=== PATIENT | male | born 1960 | race Caucasian/White ===

== ENCOUNTER → 2016-11-21 | Outpatient (CLI) | payer OTHER ==
[~2016-11-21] MED LIST: ALLO300T2 PO; ATOR10TA88 PO; INSU1.2I SC; LISI-725 PO; METF-384 PO; TRAM-10 PO; [UNRECOGNIZED DRUG - CODE] PO
[2016-11-21 16:59] LABS: URINE APPEARANCE CLEAR (CLEAR); URINE BILIRUBIN NEG (NEG); URINE COLOR YELLOW; URINE NITRITE NEG (NEG); URINE SPECIFIC GRAVITY 1.033 (1.000-1.030); UROBILINOGEN NEG (NEG)
[2016-11-21 17:01] LABS: MANUAL MICROSCOPIC REQUIRED? NO; REVIEW REQ? NO
[2016-11-21 17:04] LABS: BASO % 0.6 %; BASO ABS # 0.05 K/uL (0-0.2); COMPLETE YES; EOS % 4.2 %; HEMATOCRIT 45.2 % (42-52); IG% 0.2 %; LYMPH % 33.1 %; LYMPH ABS # 2.66 K/uL (1.2-3.4); MEAN CORPUSCULAR HEMOGLOBIN 29.5 pg (25-34); MEAN CORPUSCULAR HGB CONC 34.7 g/dl (32-36); MEAN PLATELET VOLUME 11.8 fL (7.4-10.4); MONO % 8.7 %; NEUT % 53.2 %; PLATELET COUNT 180 K/uL (130-400); RED BLOOD COUNT 5.32 M/uL (4.7-6.1); WHITE BLOOD COUNT 8.03 K/uL (4.8-10.8)
[2016-11-21 17:20] LABS: ALB/GLOB RATIO 1.4 (0.9-2); ALKALINE PHOSPHATASE 56 U/L (45-117); ALT/SGPT 35 U/L (12-78); AST/SGOT 15 U/L (15-37); BLOOD UREA NITROGEN 16 mg/dl (7-18); BUN/CREATININE RATIO 14.2 (10-20); CALCIUM 9.4 mg/dl (8.5-10.1); CARBON DIOXIDE 31 mmol/L (21-32); CHLORIDE 98 mmol/L (98-107); POTASSIUM 4.6 mmol/L (3.5-5.1); SODIUM 134 mmol/L (136-145)
[2016-11-21 17:21] LABS: GLUCOSE 356 mg/dl (70-99)
[2016-11-21 17:37] LABS: BETA-HYDROXYBUTYRATE 0.83 mg/dL (0.2-2.81)
== END | disposition home or self-care (01) ==
LOC: C.LABPBG 15:30
PROVIDERS: ATTEND Family Medicine
DX: N40.0 Benign prostatic hyperplasia without lower urinary tract symptoms (principal); R19.00 Intra-abdominal and pelvic swelling, mass and lump, unspecified site

== ENCOUNTER 2016-11-24 12:51 | Emergency (ER) | payer OTHER ==
[~2016-11-24] VITALS: Ht 182.9 cm; Wt 115.9 kg
[2016-11-24 13:06] VITALS: Ht 182.9 cm; Wt 115.9 kg
[2016-11-24] MEDS ORDERED: MoRPHine SULFATE 4 MG/ML 1 ML CARP\\VIAL IV STA (13:50)
[2016-11-24] MEDS ORDERED: INSU1.2I SC (13:54)
[2016-11-24] MEDS ORDERED: ALLO300T2 PO (13:54)
[2016-11-24] MEDS ORDERED: LISI-725 PO (13:54)
[2016-11-24] MEDS ORDERED: [UNRECOGNIZED DRUG - CODE] PO (13:54)
[2016-11-24] MEDS ORDERED: METF-384 PO (13:54)
[2016-11-24] MEDS ORDERED: TRAM-10 PO ×2 (13:54→15:37)
[2016-11-24] MEDS ORDERED: ATOR10TA88 PO (13:54)
[2016-11-24] MEDS ORDERED: SODIUM CHLORIDE 0.9% 1000ML 1,000 ML IV SCH (14:00)
--- NOTE | 2016-11-24 14:02 | EMERGENCY ROOM VISIT NOTE ---
History First contact with patient: 13:27 Chief Complaint: ABDOMINAL PAIN Stated Complaint: ABD PAIN, BACK PAIN, KIDNEY PAIN Nursing Triage Summary: pt reports pain by kidneys test showed he has kidney stone and enlarged prostate. done in [place] History of Present Illness The patient is a 56 year old male who presents to the Emergency Room with complaints of bilateral flank pain. The patient describes bilateral aching flank pain, R > L. The pain is not associated with urination. The pain does not radiate anywhere. There is no dysuria. The patient denies urinary frequency. The patient is able to void without difficulty. The patient denies hematuria or foul smelling urine. note the patient does a lot of heavy lifting around the house and at work. The patient is unsure if he strained anything with work. The patient denies nausea, vomiting, diarrhea or constipation. The patient has had a normal appetite. He has felt feverish but has not had fevers, chills or sweats. The patient denies saddle anesthesia, lower extremity weakness, or incontinence. The patient has now had pain for 1 week. He presented to his PCP for an establish visit on November 18. According to PCP note, there was mass palpated and a follow-up CT scan was ordered and done on Nov 19, 2016, which noted fatty liver, enlarged bladder and L5 spondylolysis. There was no evidence of renal tract stones. Review of Systems as below Eyes: No worsening of vision, No eye pain, No redness ENT: No nasal symptoms, No sore throat, No tinnitus Respiratory: No cough, No sputum, No wheezing Cardiovascular: No chest pain, No claudication, No palpitations Abdomen: No pain, No nausea, No vomiting, No diarrhea, No constipation Musculoskeletal: No joint pain, No muscle pain, No swelling Genitourinary - Male: No dysuria, No urinary hesitancy, No urinary retention , No urinary incontinence Neurologic: No weakness, No numbness/tingling, No vertigo Hematologic / Lymphatic: No clotting problems, No swollen lymph nodes, No night sweats Integumentary: No rash, No itch, No new/changing skin lesions Past Medical/Surgical History Hypertension Hyperlipidemia Gout Type 2 Diabetes, on Insulin Family History No known family history Social History Smoking Status: Never Smoker Smokeless Tobacco Use: No Alcohol Use: none Drug Use: none Marital Status: Housing Status: lives with significant other Occupation Status: employed (does lots of heavy lifting) Current/Historical Medications Scheduled Allopurinol (Zyloprim), 300 MG PO DAILY Atorvastatin (Lipitor), 10 MG PO DAILY Insulin Glargine (Toujeo Solostar), 17 UNITS SC DAILY Lisinopril (Zestril), 20 MG PO DAILY Metformin Hcl (Glucophage), 1,000 MG PO BID Tramadol (Ultram), 50 MG PO QID Scheduled PRN Indomethacin (Indomethacin ER), 75 MG PO DAILY PRN for Pain Tramadol (Ultram), 50 MG PO Q6H PRN for Pain Physical Exam Vital Signs Date Time Temp Pulse Resp B/P (MAP) Pulse Ox O2 Delivery O2 Flow Rate FiO2 11/24/16 16:24 36.8 73 16 136/87 98 11/24/16 14:25 68 20 156/88 97 11/24/16 13:06 36.8 81 18 185/85 97 Room Air Pain Rating (0-10): 5 Physical Exam Constitutional: Vital signs as above were reviewed. Eyes: Pupils equal, round, and reactive to light. Extraocular muscles are intact. No proptosis. No photophobia. ENT: Mucous membranes are moist. Oropharynx is clear. No sinus tenderness. TMs are clear bilaterally. Cardiovascular: Heart with a regular rate and rhythm. Pulses are palpable and symmetric in all 4 extremities. No pedal edema appreciated. Respiratory: Lungs clear to auscultation bilaterally. No wheezes, rales, or rhonchi appreciated. No accessory muscle use. No retractions. No increased work of breathing. GI: Abdomen soft, nontender, nondistended. Normal active bowel sounds. No abdominal hernias appreciated. No rebound. No guarding. Mild bilateral flank tenderness bilaterally : No CVA tenderness appreciated. Musculoskeletal: No midline cervical or vertebral tenderness. No gross deformities. No bony tenderness. No calf swelling or tenderness. Integumentary: Warm, dry, no rashes appreciated. Neurological: Patient awake, alert, and oriented x 3. Cranial nerves two through 12 grossly intact. Motor 5 out of 5 strength bilateral upper and lower extremities. Lymph: No cervical lymphadenopathy appreciated. Medical Decision & Procedures Laboratory Results 11/24/16 13:25 Red Blood Count 5.63, Mean Corpuscular Volume 85.3, Mean Corpuscular Hemoglobin 29.7, Mean Corpuscular Hemoglobin Concent 34.8, Mean Platelet Volume 11.8, Neutrophils (%) (Auto) 60.1, Lymphocytes (%) (Auto) 26.8, Monocytes (%) (Auto) 8.0, Eosinophils (%) (Auto) 4.3, Basophils (%) (Auto) 0.5, Neutrophils # (Auto) 5.26, Lymphocytes # (Auto) 2.35, Monocytes # (Auto) 0.70, Eosinophils # (Auto) 0.38, Basophils # (Auto) 0.04 11/24/16 13:25 Test 11/24/16 13:25 11/24/16 13:52 White Blood Count 8.76 K/uL (4.8-10.8) Red Blood Count 5.63 M/uL (4.7-6.1) Hemoglobin 16.7 g/dL (14.0-18.0) Hematocrit 48.0 % (42-52) Mean Corpuscular Volume 85.3 fL (80-100) Mean Corpuscular Hemoglobin 29.7 pg (25-34) Mean Corpuscular Hemoglobin Concent 34.8 g/dl (32-36) Platelet Count 190 K/uL (130-400) Mean Platelet Volume 11.8 fL (7.4-10.4) Neutrophils (%) (Auto) 60.1 % Lymphocytes (%) (Auto) 26.8 % Monocytes (%) (Auto) 8.0 % Eosinophils (%) (Auto) 4.3 % Basophils (%) (Auto) 0.5 % Neutrophils # (Auto) 5.26 K/uL (1.4-6.5) Lymphocytes # (Auto) 2.35 K/uL (1.2-3.4) Monocytes # (Auto) 0.70 K/uL (0.11-0.59) Eosinophils # (Auto) 0.38 K/uL (0-0.5) Basophils # (Auto) 0.04 K/uL (0-0.2) RDW Standard Deviation 40.4 fL (36.4-46.3) RDW Coefficient of Variation 13.0 % (11.5-14.5) Immature Granulocyte % (Auto) 0.3 % Immature Granulocyte # (Auto) 0.03 K/uL (0.00-0.02) Anion Gap 6.0 mmol/L (3-11) Est Creatinine Clear Calc Drug Dose 119.0 ml/min Estimated GFR () 109.5 Estimated GFR (Non- 94.5 BUN/Creatinine Ratio 12.9 (10-20) Calcium Level 9.4 mg/dl (8.5-10.1) Total Bilirubin 0.6 mg/dl (0.2-1) Aspartate Amino Transf (AST/SGOT) 15 U/L (15-37) Alanine Aminotransferase (ALT/SGPT) 33 U/L (12-78) Alkaline Phosphatase 60 U/L (45-117) Total Protein 7.4 gm/dl (6.4-8.2) Albumin 3.9 gm/dl (3.4-5.0) Globulin 3.5 gm/dl (2.5-4.0) Albumin/Globulin Ratio 1.1 (0.9-2) Urine Color YELLOW Urine Appearance CLEAR (CLEAR) Urine pH 6.0 (4.5-7.5) Urine Specific [place] 1.023 (1.000-1.030) Urine Protein NEG (NEG) Urine Glucose (UA) 3+ (NEG) Urine Ketones NEG (NEG) Urine Occult Blood NEG (NEG) Urine Nitrite NEG (NEG) Urine Bilirubin NEG (NEG) Urine Urobilinogen NEG (NEG) Urine Leukocyte Esterase NEG (NEG) Medications Administered Medications (Trade) Dose Ordered Sig/Randall Route Start Time Stop Time Status Last Admin Dose Admin Sodium Chloride 1,000 ml @ 999 mls/hr Q1H1M IV 11/24/16 14:00 11/24/16 17:24 DC 11/24/16 14:00 999 MLS/HR Morphine Sulfate (MoRPHine SULFATE INJ) 4 mg NOW STAT IV 11/24/16 13:50 11/24/16 13:52 DC 11/24/16 14:27 4 MG ED Course 13:20 - Evaluated by Dr. Cruz, R3 13:40 - Labs ordered 13:50 - Staffed case with Dr. Khari Waldron, ER attending physician Morphine 4 mg IV one dose 13:55 - Reviewed CT scan ordered by Dr. Enriquez Nov 19, 2016 Report states mild hepatic steatosis, cholelithiasis, minimal diverticulosis , enlarged prostate indenting the bladder, L5 spondylolysis bilaterally. 14:20 - Labs reviewed; WNL Hyperglycemia noted 16:00 - 1 L NSS complete Patient reports feeling better; agreeable to discharge with PCP follow-up Patient discharged in stable condition Medical Decision 56 year old male with bilateral flank pain. Differential includes: urinary tract stone, pyelonephritis, cholecystitis, choledocholithiasis, musculoskeletal pain. The CT scan from 11/19, ordered by PCP was reviewed and did not show any concerning findings, specifically urinary tract stones. Moreover, despite having choledocholithiasis, the absence of leukocytosis, or elevated transaminases points against an acute. The patient did have palpable muscular pain bilaterally. History does indicate that he does heavy lifting so it is possible, that this is muscular strain which he is to be treated for. Given the absence of concerning findings on history, exam or lab studies, the patient was discharged home in stable condition, with instructions to follow-up with PCP. The patient was discharged home in stable condition. [place] Drug Monitoring Program Search Results: patient reviewed within database, no issues identified Head Trauma GCS Score: 15 Medication Reconcilliation Current Medication List: was personally reviewed by me Blood Pressure Screening Patient's blood pressure: Elevated blood pressure Impression Primary Impression: Pain in abdominal muscle of right flank Additional Impression: Pain in abdominal muscle of left flank Departure Information Dispostion Home / Self-Care Condition GOOD Prescriptions Tramadol (Ultram) 50 Mg Tab 50 MG PO Q6H Y for Pain for 5 Days, #20 TAB Prov: Lyle Cruz MD 11/24/16 Referrals Vanessa Enriquez DO (PCP) Patient Instructions My [facility] Additional Instructions You came to the ED for pain in the back. We checked your labs and they were all normal. Your blood sugar was high but this can be treated at home with your insulin and regular checks. We reviewed your recent CT scan from 11/19, which did not show any evidence of kidney stones. There is no indication based on your labs that you have any infection in your kidneys, urinary tract or bladder. You do have tenderness on both sides under the ribs. We suspect the cause is muscular. Fortunately, you can be treated at home with close follow-up with your family doctor. We will give you a prescription for Tramadol to help. Please use Tylenol and/ or Motrin as needed as well. Ice/Heat pack application can be tried as well if that gives you relief. In addition. If your symptoms fail to improve, acutely worsen, please seek medical attention immediately by either calling your primary care provider or going to your nearest emergency department. Otherwise, please see your primary care provider in 3-5 days to ensure that your symptoms continue to improve. Problem Qualifiers
[2016-11-24 14:07] LABS: BASO % 0.5 %; BASO ABS # 0.04 K/uL (0-0.2); COMPLETE YES; EOS % 4.3 %; IG% 0.3 %; LYMPH % 26.8 %; LYMPH ABS # 2.35 K/uL (1.2-3.4); MEAN CELL VOLUME 85.3 fL (80-100); MEAN CORPUSCULAR HEMOGLOBIN 29.7 pg (25-34); MEAN CORPUSCULAR HGB CONC 34.8 g/dl (32-36); MEAN PLATELET VOLUME 11.8 fL (7.4-10.4); NEUT % 60.1 %; PLATELET COUNT 190 K/uL (130-400); RED BLOOD COUNT 5.63 M/uL (4.7-6.1); WHITE BLOOD COUNT 8.76 K/uL (4.8-10.8)
[2016-11-24 14:09] LABS: BUN/CREATININE RATIO 12.9 (10-20); CALCIUM 9.4 mg/dl (8.5-10.1); CREATININE 0.9 mg/dl (0.60-1.40); POTASSIUM 4.9 mmol/L (3.5-5.1)
[2016-11-24 14:10] LABS: URINE APPEARANCE CLEAR (CLEAR); URINE BILIRUBIN NEG (NEG); URINE COLOR YELLOW; URINE NITRITE NEG (NEG); URINE SPECIFIC GRAVITY 1.023 (1.000-1.030); UROBILINOGEN NEG (NEG); ZZUR CULT IF INDIC CLEAN CATCH NO
[2016-11-24 14:12] LABS: ALB/GLOB RATIO 1.1 (0.9-2)
[2016-11-24 14:14] LABS: MANUAL MICROSCOPIC REQUIRED? NO; REVIEW REQ? NO
[2016-11-24 16:24] VITALS: BP 136/87; PULSE 73; TEMP 36.8; O2SAT 98
--- NOTE | 2016-11-24 16:52 | EMERGENCY ROOM VISIT NOTE ---
ED Visit Note First contact with patient: 13:27 The patient was seen and examined with Lyle Cruz, . I agree with the history, physical and findings. Please see the note for disposition and details.
== END 2016-11-24 16:26 | disposition home or self-care (01) ==
LOC: C.EDB 12:55
DX: R10.9 Unspecified abdominal pain (principal); E11.9 Type 2 diabetes mellitus without complications; Z79.4 Long term (current) use of insulin; I10 Essential (primary) hypertension; E78.5 Hyperlipidemia, unspecified

== ENCOUNTER 2017-01-26 07:01 | Observation (INO) | payer OTHER ==
[2017-01-05 11:05] VITALS: BMI 34.0
[~2017-01-26] VITALS: Ht 182.9 cm; Wt 115.9 kg
[2017-01-26] VITALS (8 sets, daily range): BP systolic 150–180; BP diastolic 81–91; PULSE 74–93; TEMP 36.7–37.2; O2SAT 95–97; BMI 34.0
[~2017-01-26 07:01] MED LIST changes: +ASPI81TA28 PO; +ATOR10TA82 PO; -ATOR10TA88 PO; +CEFUROXIME IV 1,500 MG in DEXTROSE 5% 100ML IV SCH; +IBUP-1050 PO; +LACTATED RINGER'S 1000ML 1,000 ML IV SCH
[2017-01-26] MEDS ORDERED: MIDAZOLAM HCL 1 MG/ML 2ML VIAL ONE (08:53)
[2017-01-26] MEDS ORDERED: FENTANYL CITRATE INJ 50 MCG/1 ML 2 ML VIAL ONE (08:53)
--- NOTE | 2017-01-26 10:07 | History & Physical Bridge Note ---
H&P Re-Evaluation Bridge Note: I have examined the patient, reviewed the History & Physical and in the interval since the performance of the History & Physical I have noted the following changes of clinical significance: No changes noted
[2017-01-26] MEDS ORDERED: CONRAY 60% 50 ML VIAL ONE (10:15)
[2017-01-26] MEDS ORDERED: BUPIVACAINE 0.5 % 5 MG/1 ML MPF 30ML VIAL ONE (10:15)
[2017-01-26] MEDS ORDERED: GLYCOPYRROLATE INJ 0.2 MG/ML VIAL ONE (10:59)
[2017-01-26] MEDS ORDERED: PHENYLEPHRINE 100MCG/ML 5ML SYR ONE (10:59)
[2017-01-26] MEDS ORDERED: EpHEDrine SULFATE 50MG/5ML SYR ONE (10:59)
[2017-01-26] MEDS ORDERED: NEOSTIGMINE METHYLSULFATE 5 MG/5 ML SYR ONE (10:59)
[2017-01-26] MEDS ORDERED: ROCURONIUM BROMIDE 10 MG/ML 5 ML VIAL IV ONE (10:59)
[2017-01-26] MEDS ORDERED: PROPOFOL IV EMULSION 10 MG/ML 20 ML VIAL IV ONE (10:59)
[2017-01-26] MEDS ORDERED: ONDANSETRON INJ 2 MG/ML 2 ML VIAL ONE (10:59)
[2017-01-26] MEDS ORDERED: LIDOCAINE HCL 2% 2 ML VIAL (20MG/ML) ONE (10:59)
[2017-01-26] MEDS ORDERED: LACTATED RINGER'S 1000ML 1,000 ML IV SCH (11:21)
--- NOTE | 2017-01-26 11:25 | [facility] Operative Report ---
Operative Report Operative Date Jan 26, 2017. Pre-Operative Diagnosis Cholelithiasis, Biliary Colic Post-Operative Diagnosis Cholelithiasis, Biliary Colic, chronic cholecystitis Procedure(s) Performed Laparoscopic Cholecystectomy Surgeon Dr. Aguiar Yard Caller Surgeon(s) EMILIANO Corona Estimated Blood Loss 10mL Findings chronic adhesions and stone in neck Specimens A. Gallbladder Anesthesia gen Complication(s) None Disposition Recovery Room / PACU I attest to the content of the Intraoperative Record and any orders documented therein. Any exceptions are noted below.
[2017-01-26] MEDS ORDERED: PROMETHAZINE HCL INJ 25 MG in SODIUM CHLORIDE 0.9% 50ML 50 ML IV PRN (11:30)
[2017-01-26] MEDS ORDERED: ONDANSETRON INJ 2 MG/ML 2 ML VIAL IV PRN ×2 (11:30→11:45)
[2017-01-26] MEDS ORDERED: HYDROCODONE/ACETAMOPHEN 5/325MG TAB PO PRN (11:30)
[2017-01-26] MEDS ORDERED: MoRPHine SULFATE 2 MG/ML CARP IV PRN (11:30)
[2017-01-26] MEDS ORDERED: MoRPHine SULFATE 4 MG/ML 1 ML CARP\\VIAL IV PRN (11:30)
--- NOTE | 2017-01-26 11:44 | OPERATIVE REPORT ---
DATE OF OPERATION: 01/26/2017 NAME OF OPERATION: Laparoscopic cholecystectomy. PREOPERATIVE DIAGNOSIS: Biliary colic. POSTOPERATIVE DIAGNOSIS: Same with chronic cholecystitis and chronic adhesions. STAFF SURGEON: Gavino Aguiar MD. LIGHT BULB TESTER: Rubén Redmond PA-C. ANESTHESIA: General. DESCRIPTION OF PROCEDURE: The patient was brought in the operating room and placed on the operating table in supine position. His abdomen was prepped and draped in usual fashion. Pneumatic stockings and orogastric tube were placed. Then, 0.5% plain Marcaine was used to anesthetize all incisions. Incision was made above the umbilicus, carrying dissection down, retracting the fascia, placing a Veress needle producing pneumoperitoneum. An 11 mm port was placed at this level. Then under visualization, three 5 mm ports were placed, 1 cephalad and 2 laterally. Gallbladder was grasped. There were severe adhesions of the omentum to the gallbladder consistent with chronic inflammation. These were taken down. The bile was aspirated from the gallbladder. There were significant adhesions around the ghazal hepatis with a stone in the neck of the gallbladder, cystic duct and cystic artery identified, clipped and transected, then the gallbladder dissected away from the liver bed in the usual fashion. It was placed in an Endobag. After appropriate hemostasis and irrigation, the Endobag was removed through the umbilical site. All ports were then removed. The umbilical fascia closed using 0 Vicryl suture. Skin was reapproximated using 5-0 Prolene suture. The patient was transferred to recovery room in stable condition. My hospital clinic assistant helped with entering the abdomen, exposing the gallbladder, removing the gallbladder and closing the incision. I attest to the content of the Intraoperative Record and any orders documented therein. Any exception s are noted below.
[2017-01-26] MEDS ORDERED: NALOXONE HCL 0.4 MG/1 ML VIAL/CARP IV PRN (11:45)
[2017-01-26] MEDS ORDERED: EpHEDrine SULFATE INJ 50 MG/ML AMP IV PRN (11:45)
[2017-01-26] MEDS ORDERED: ATROPINE SULFATE 0.1 MG/ML 5ML SYR IV PRN (11:45)
[2017-01-26] MEDS ORDERED: LABETALOL HCL IV 5 MG/ML 20ML IV PRN (11:45)
[2017-01-26] MEDS ORDERED: FENTANYL CITRATE INJ 50 MCG/1 ML 2 ML VIAL IV PRN (11:45)
[2017-01-26] MEDS ORDERED: PROMETHAZINE HCL INJ 12.5 MG in SODIUM CHLORIDE 0.9% 50ML 50 ML IV PRN ×2 (11:45)
[2017-01-26] MEDS ORDERED: FLUMAZENIL 0.1 MG/1 ML 10 ML VIAL IV PRN (11:45)
[2017-01-26] MEDS ORDERED: IV FLUIDS COMPLETED PRN (12:15)
--- NOTE | 2017-01-26 12:22 | Anesthesiology Progress Note ---
Anesthesia Post Op Note Date & Time Jan 26, 2017 at 12:21 Vital Signs Pain Intensity: 0 Vital Signs Past 12 Hours Date Time Temp Pulse Resp B/P (MAP) Pulse Ox O2 Delivery O2 Flow Rate FiO2 01/26/17 11:55 74 16 145/87 100 Oxymask 10 01/26/17 11:45 73 16 143/88 100 Oxymask 10 01/26/17 11:35 37.5 82 16 162/82 99 Oxymask 01/26/17 07:33 36.7 83 20 180/88 (118) 95 Room Air Notes Mental Status: alert / awake / arousable, participated in evaluation Pt Amnestic to Procedure: Yes Nausea / Vomiting: adequately controlled Pain: adequately controlled Airway Patency, RR, SpO2: stable & adequate BP & HR: stable & adequate Hydration State: stable & adequate Anesthetic Complications: no major complications apparent
--- NOTE | 2017-01-26 15:08 | Medical Consult ---
Consultation Date of Consultation: Jan 26, 2017. Attending Physician: Gavino Aguiar M.D. Reason for Consultation: Medical management History of Present Illness 56 yo male here after cholecystectomy by Dr. Aguiar. Per the patient, has been dealing with low back pain for several months, discovered to have the gall stones, hoping that pain was due to the stones. Surgery went well, no complications. Breathing well, no chest pain or pressure, no nausea. Has some mild abdominal pain near the surgical incisions but otherwise doing well. Patient has a history of HTN, diabetes type II, high cholesterol. Recently this year he has had his veins stripped. Past Medical/Surgical History HTN Dyslipidemia DM type II Varicose veins, s/p vein stripping BPH s/p vasectomy s/p carpal tunnel repair Family History DM, HTN Social History Smoking Status: Never Smoker Alcohol Use: socially (on weekends) Drug Use: none Marital Status: Housing Status: lives with significant other Occupation Status: employed Allergies Coded Allergies: No Known Allergies (Unverified , 01/26/17) Home Medications Allopurinol 300mg daily Metformin 1000mg BID Toujeo 17 units qAM (did not take today) Aspirin 81mg daily Lipitor 10mg daily Lisinopril 20mg daily Indomethicin PRN Current Inpatient Medications Current Inpatient Medications Medications (Trade) Dose Ordered Sig/Randall Route Start Time Stop Time Status Last Admin Dose Admin Lactated Ringer's 1,000 ml @ 50 mls/hr Q20H IV 01/26/17 11:21 01/26/17 15:00 Cefuroxime Sodium 1500 mg/Dextrose 115 ml @ 200 mls/hr Q8H IV 01/26/17 18:00 01/27/17 17:59 Acetaminophen/ Hydrocodone Bitart ([place] 5/325 Tab) 1 tab Q4 PRN PO 01/26/17 11:30 02/09/17 11:29 Acetaminophen/ Hydrocodone Bitart ([place] 5/325 Tab) 2 tab Q4 PRN PO 01/26/17 11:30 02/09/17 11:29 Morphine Sulfate (MoRPHine SULFATE INJ) 2 mg Q4H PRN IV 01/26/17 11:30 02/09/17 11:29 Morphine Sulfate (MoRPHine SULFATE INJ) 4 mg Q4H PRN IV 01/26/17 11:30 02/09/17 11:29 Promethazine HCl 25 mg/Sodium Chloride 51 ml @ 204 mls/hr Q6H PRN IV 01/26/17 11:30 02/25/17 11:29 Ondansetron HCl (Zofran Inj) 4 mg Q6H PRN IV 01/26/17 11:30 02/25/17 11:29 Promethazine HCl 12.5 mg/Sodium Chloride 50.5 ml @ 204 mls/hr Q6H PRN IV 01/26/17 11:45 02/25/17 11:44 Fentanyl Citrate (Fentanyl Inj) 25 mcg Q5M PRN IV 01/26/17 11:45 01/26/17 16:45 Naloxone HCl (Narcan Inj) 0.2 mg Q2M PRN IV 01/26/17 11:45 01/26/17 16:45 Flumazenil (Romazicon Inj) 0.2 mg Q2M PRN IV 01/26/17 11:45 01/26/17 16:45 Ondansetron HCl (Zofran Inj) 4 mg ONE PRN IV 01/26/17 11:45 01/26/17 16:45 Promethazine HCl 12.5 mg/Sodium Chloride 50.5 ml @ 202 mls/hr ONE PRN IV 01/26/17 11:45 01/26/17 16:45 Labetalol HCl (Normodyne IV) 5 mg Q5M PRN IV 01/26/17 11:45 01/26/17 16:45 Ephedrine Sulfate (EpHEDrine SULFATE INJ) 5 mg Q5M PRN IV 01/26/17 11:45 01/26/17 16:45 Atropine Sulfate (Atropine Sulfate 0.1MG/Ml Inj) 0.5 mg Q1M PRN IV 01/26/17 11:45 01/26/17 16:45 Miscellaneous (Iv Fluids Completed) 1 ea PRN PRN N/A 01/26/17 12:15 01/26/18 12:14 Allopurinol (Zyloprim Tab) 300 mg QAM PO 01/27/17 09:00 02/26/17 08:59 Atorvastatin Calcium (Lipitor Tab) 10 mg QAM PO 01/27/17 09:00 02/26/17 08:59 Lisinopril (Zestril Tab) 20 mg QAM PO 01/27/17 09:00 1/11/18 08:59 Non-Formulary Medication (Insulin Glargine (Brian Solostar)) 17 units QAM SC 01/27/17 09:00 02/26/17 08:59 UNV Review of Systems Constitutional: No fever, No chills, No sweats, No weight loss, No weakness, No fatigue, No problem reported Eyes: No worsening of vision, No eye pain, No redness, No discharge, No diplopia, No problem reported ENT: No hearing loss, No unusual epistaxis, No nasal symptoms, No sore throat, No tinnitus, No dental problems, No trouble swallowing, No problem reported Respiratory: No cough, No sputum, No wheezing, No shortness of breath, No dyspnea on exertion, No dyspnea at rest, No hemoptysis, No problem reported Cardiovascular: No chest pain, No orthopnea, No PND, No edema, No claudication , No palpitations, No problem reported Abdomen: + pain (mild pain at surgical sites), No nausea, No vomiting, No diarrhea, No constipation, No GI bleeding, No problem reported Musculoskeletal: No joint pain, No muscle pain, No swelling, No calf pain, No problem reported Genitourinary - Male: + urinary frequency, + urinary hesitancy, No hematuria, No dysuria, No urinary urgency, No urinary retention Neurologic: No memory loss, No paralysis, No weakness, No numbness/tingling, No vertigo, No balance problems, No problem reported Psychiatric: No depression symptoms, No anhedonism, No anxiety, No insomnia, No substance abuse, No problem reported Endocrine: No fatigue, No excessive thirst, No excessive urination, No problem reported Hematologic / Lymphatic: No abnormal bleeding/bruising, No clotting problems, No swollen lymph nodes, No night sweats, No problem reported Integumentary: No rash, No itch, No new/changing skin lesions, No color change , No bleeding, No problem reported Allergic / Immunologic: No environmental allergies, No seasonal allergies, No pet sensitivities, No food allergies, No hives, No frequent infections, No poor healing, No prolonged convalescence, No problem reported Physical Exam Date Time Temp Pulse Resp B/P (MAP) Pulse Ox O2 Delivery O2 Flow Rate FiO2 01/26/17 14:30 93 16 152/87 (108) 95 Room Air 01/26/17 13:26 80 16 160/91 (114) 97 Room Air 01/26/17 12:33 Room Air 01/26/17 12:30 37.0 77 16 150/87 (108) 96 Room Air 01/26/17 12:15 36.3 74 16 151/83 100 Room Air 01/26/17 12:05 77 16 159/91 100 Room Air 01/26/17 11:55 74 16 145/87 100 Oxymask 10 01/26/17 11:45 73 16 143/88 100 Oxymask 10 01/26/17 11:35 37.5 82 16 162/82 99 Oxymask 10 01/26/17 07:33 36.7 83 20 180/88 (118) 95 Room Air General Appearance: WD/WN, no apparent distress Head: normocephalic, atraumatic Eyes: normal inspection, EOMI, sclerae normal ENT: normal ENT inspection, hearing grossly normal, pharynx normal Neck: supple, no adenopathy, no JVD, trachea midline Respiratory/Chest: chest non-tender, lungs clear, normal breath sounds, no respiratory distress, no accessory muscle use Cardiovascular: regular rate, rhythm, no edema, no gallop, no JVD, no murmur, normal peripheral pulses Abdomen/GI: normal bowel sounds, soft, no organomegaly, + tenderness (mild tenderness as to be expected post op) Back: normal inspection, no CVA tenderness, no muscle spasm, normal range of motion Extremities/Musculoskelatal: normal inspection, no calf tenderness, normal capillary refill, no pedal edema, normal range of motion, non-tender, pelvis stable Neurologic/Psych: drama therapist II-XII nml as tested, no motor/sensory deficits, alert, normal mood/affect, normal reflexes, oriented x 3 Skin: normal color, warm/dry, no rash Lymphatic: no adenopathy Laboratory Results Last 24 Hours Test 01/26/17 07:30 01/26/17 11:42 Bedside Glucose 243 mg/dl 249 mg/dl Assessment & Plan 56 yo male with h/o HTN, DM and dyslipidemia - s/p cholecystectomy: pain control, DVT prophylaxis and d/c per Dr. Aguiar pain is controlled, breathing well check CBC and BMP tomorrow - HTN: continue Lisinopril in the AM - DM: continue Toujeo tomorrow AM, Novolog SS today can resume Metformin - Dyslipidemia: Lipitor Additional Copies To Vanessa Enriquez, DO
[2017-01-26] MEDS: HYDROCODONE/ACETAMOPHEN 5/325MG TAB PO PRN (15:46)
[2017-01-26] MEDS: CEFUROXIME IV 1,500 MG in DEXTROSE 5% 100ML 100 ML IV SCH (17:47)
[2017-01-26] MEDS: INSULIN ASPART 100 UNITS/ML 3 ML PEN SC SCH ×2 (17:52→22:05)
[2017-01-26] MEDS ORDERED: COUGH DROP (SUGAR FREE) LOZ 24 LOZ/1 BOX PO PRN (21:45)
[2017-01-26] MEDS ORDERED: INSULIN ASPART 100 UNITS/ML 3 ML PEN SC STA (22:33)
[2017-01-27] MEDS: CEFUROXIME IV 1,500 MG in DEXTROSE 5% 100ML 100 ML IV SCH ×2 (01:57→02:57)
[2017-01-27 03:56] VITALS: BP 164/78; PULSE 81; TEMP 36.9; O2SAT 96
[2017-01-27] MEDS: HYDROCODONE/ACETAMOPHEN 5/325MG TAB PO PRN ×2 (04:02→09:30)
[2017-01-27] MEDS ORDERED: HYDR-5688 PO (06:17)
--- NOTE | 2017-01-27 06:18 | Discharge Instructions ---
Discharge Instructions Date of Service Jan 27, 2017. Admission Reason for Admission: Biliary Colic, Cholelithiasis Discharge Discharge Diagnosis / Problem: chronic cholecystitis Discharge Goals Goal(s): Decrease discomfort, Improve function, Improve disease control Activity Recommendations Activity Limitations: as noted below Lifting Limitations: no more than 25 pounds Exercise/Sports Limitations: until after follow-up appointment May Resume Sexual Activity: when tolerated Shower/Bathe: tomorrow Driving or Machine Use: resume 3 days after discharge . Instructions / Follow-Up Instructions / Follow-Up SPECIAL CARE INSTRUCTIONS: * Cover incisions and change daily for comfort/drainage. * May use ibuprofen for pain as tolerated. * Expect some swelling and bruising. Call your doctor if: * Temperature above 101 degrees * Pain not relieved by pain medicine ordered * There is increased drainage or redness from any incision * You have any unanswered questions or concerns [phone]. FOLLOW UP VISIT: If not already scheduled, please call the office for a follow-up visit. for next week- some suture removal OFFICE PHONE NUMBER: Dr. Aguiar Office Current Hospital Diet Patient's current hospital diet: Diabetes Type 2 Diet Discharge Diet Recommended Diet: Regular Diet Procedures Procedures Performed: Laparoscopic Cholecystectomy Pending Studies Studies pending at discharge: no Medical Emergencies . Who to Call and When: Medical Emergencies: If at any time you feel your situation is an emergency, please call 911 immediately. . Non-Emergent Contact Non-Emergency issues call your: Primary Care Provider, Surgeon . "Provider Documentation" section prepared by Gavino Aguiar. . VTE Core Measure Inpt VTE Proph given/why not?: SCD's
[2017-01-27 06:56] LABS: BASO % 0.3 %; BASO ABS # 0.03 K/uL (0-0.2); COMPLETE YES; EOS % 2.7 %; HEMATOCRIT 43.2 % (42-52); IG% 0.2 %; LYMPH % 26.2 %; LYMPH ABS # 2.56 K/uL (1.2-3.4); MEAN CELL VOLUME 85.7 fL (80-100); MEAN CORPUSCULAR HEMOGLOBIN 29.8 pg (25-34); MEAN CORPUSCULAR HGB CONC 34.7 g/dl (32-36); MEAN PLATELET VOLUME 10.9 fL (7.4-10.4); MONO % 10.3 %; NEUT % 60.3 %; PLATELET COUNT 162 K/uL (130-400); RED BLOOD COUNT 5.04 M/uL (4.7-6.1); WHITE BLOOD COUNT 9.77 K/uL (4.8-10.8)
--- NOTE | 2017-01-27 06:59 | DISCHARGE SUMMARY ---
PRINCIPAL DIAGNOSIS: Chronic cholecystitis. PROCEDURES: The patient underwent laparoscopic cholecystectomy. HISTORY OF PRESENT ILLNESS: The patient is a 56-year-old male who has had chronic abdominal pain and felt to be secondary to biliary colic. The patient was brought into the hospital on 01/26/2017 where he underwent laparoscopic cholecystectomy. He had severe chronic adhesions consistent with chronic cholecystitis and a stone in the neck of the gallbladder. The patient did very well overnight and is felt stable for discharge home today to be followed in the surgical clinic next week.
[2017-01-27 07:00] VITALS: BP 161/85; PULSE 66; TEMP 36.9; O2SAT 94
[2017-01-27 07:27] LABS: BUN/CREATININE RATIO 13.4 (10-20); CALCIUM 8.2 mg/dl (8.5-10.1); CREATININE 0.95 mg/dl (0.60-1.40); POTASSIUM 4.1 mmol/L (3.5-5.1)
[2017-01-27 07:37] LABS: BETA-HYDROXYBUTYRATE 1.25 mg/dL (0.2-2.81)
[2017-01-27 07:42] VITALS: BP 161/85; PULSE 66; TEMP 36.9; O2SAT 94
--- NOTE | 2017-01-27 07:55 | Anesthesiology Progress Note ---
Anesthesia Post Op Note Date & Time Jan 27, 2017 at 07:55 Vital Signs Pain Intensity: 6.0 Vital Signs Past 12 Hours Date Time Temp Pulse Resp B/P (MAP) Pulse Ox O2 Delivery O2 Flow Rate FiO2 01/27/17 07:42 36.9 66 20 94 Room Air 01/27/17 07:00 36.9 66 20 161/85 (110) 94 Room Air 01/27/17 03:56 36.9 81 18 164/78 (106) 96 Room Air 01/26/17 23:59 152/88 (109) 01/26/17 23:45 Room Air 01/26/17 23:35 36.9 74 18 171/82 (111) 96 Room Air Notes Mental Status: alert / awake / arousable, participated in evaluation Pt Amnestic to Procedure: Yes Nausea / Vomiting: adequately controlled Pain: adequately controlled Airway Patency, RR, SpO2: stable & adequate BP & HR: stable & adequate Hydration State: stable & adequate Anesthetic Complications: no major complications apparent
[2017-01-27] MEDS: INSULIN ASPART 100 UNITS/ML 3 ML PEN SC SCH (08:37)
[2017-01-27] MEDS ORDERED: ALLOPURINOL 300 MG TAB PO SCH (09:00)
[2017-01-27] MEDS ORDERED: INSULIN GLARGINE SOLOSTAR 100 UNITS/ML 3 ML PEN SC SCH (09:00)
[2017-01-27] MEDS ORDERED: ATORVASTATIN 10 MG TAB PO SCH (09:00)
[2017-01-27] MEDS ORDERED: LISINOPRIL 20 MG TAB PO SCH (09:00)
[2017-01-27 09:30] VITALS: Ht 182.9 cm; Wt 115.9 kg
[2017-01-27] MEDS ORDERED: NURSING VERBAL MED ORDER ONE (09:30)
[2017-01-27] MEDS ORDERED: INSULIN GLARGINE SOLOSTAR 100 UNITS/ML 3 ML PEN SC STA (09:40)
[2017-01-27] MEDS ORDERED: INSU1.2I SC (10:04)
[2017-01-28] MEDS ORDERED: INSULIN GLARGINE SOLOSTAR 100 UNITS/ML 3 ML PEN SC SCH (09:00)
== END 2017-01-27 10:25 | disposition home or self-care (01) ==
LOC: C.ACU 07:01 → C.MSW 11:24 → ENRESERV 12:01
PROVIDERS: ADMIT Surgery; ATTEND Surgery
DX: K80.20 Calculus of gallbladder without cholecystitis without obstruction (principal); K82.8 Other specified diseases of gallbladder; M19.90 Unspecified osteoarthritis, unspecified site; I10 Essential (primary) hypertension; N40.0 Benign prostatic hyperplasia without lower urinary tract symptoms; M10.9 Gout, unspecified; E11.40 Type 2 diabetes mellitus with diabetic neuropathy, unspecified; Z83.3 Family history of diabetes mellitus; E78.00 Pure hypercholesterolemia, unspecified; Z79.4 Long term (current) use of insulin; E78.5 Hyperlipidemia, unspecified

== ENCOUNTER → 2017-02-05 | Outpatient (CLI) | payer OTHER ==
[~2017-02-05] MED LIST changes: -CEFUROXIME IV 1,500 MG in DEXTROSE 5% 100ML IV SCH; +HYDR-5688 PO; -LACTATED RINGER'S 1000ML 1,000 ML IV SCH
[2017-02-05 17:25] LABS: BASO % 0.6 %; BASO ABS # 0.05 K/uL (0-0.2); COMPLETE YES; EOS % 3.3 %; HEMATOCRIT 44.2 % (42-52); IG% 0.2 %; LYMPH % 29.2 %; LYMPH ABS # 2.48 K/uL (1.2-3.4); MEAN CORPUSCULAR HEMOGLOBIN 29.8 pg (25-34); MEAN CORPUSCULAR HGB CONC 35.1 g/dl (32-36); MEAN PLATELET VOLUME 12.3 fL (7.4-10.4); MONO % 7.8 %; NEUT % 58.9 %; PLATELET COUNT 210 K/uL (130-400)
[2017-02-05 17:56] LABS: BLOOD UREA NITROGEN 11 mg/dl (7-18); BUN/CREATININE RATIO 13.2 (10-20); CALCIUM 9.3 mg/dl (8.5-10.1); CARBON DIOXIDE 29 mmol/L (21-32); CHLORIDE 103 mmol/L (98-107); CREATININE 0.81 mg/dl (0.60-1.40); GLUCOSE 140 mg/dl (70-99); POTASSIUM 4.5 mmol/L (3.5-5.1); SODIUM 136 mmol/L (136-145)
== END | disposition home or self-care (01) ==
LOC: C.LABPBG 15:31
PROVIDERS: ATTEND Family Medicine
DX: Z00.00 Encounter for general adult medical examination without abnormal findings (principal)

== ENCOUNTER → 2017-05-08 | Outpatient (CLI) | payer OTHER ==
[2017-05-08 16:52] LABS: BLOOD UREA NITROGEN 24 mg/dl (7-18); CALCIUM 8.9 mg/dl (8.5-10.1); CARBON DIOXIDE 28 mmol/L (21-32); CREATININE 1.18 mg/dl (0.60-1.40); GLUCOSE 147 mg/dl (70-99); POTASSIUM 3.7 mmol/L (3.5-5.1); SODIUM 134 mmol/L (136-145)
== END | disposition home or self-care (01) ==
LOC: C.LABPBG 15:17
PROVIDERS: ATTEND Family Medicine
DX: E11.40 Type 2 diabetes mellitus with diabetic neuropathy, unspecified (principal); I10 Essential (primary) hypertension

== ENCOUNTER 2019-02-01 05:29 | Observation (INO) ==
--- NOTE | 2019-01-20 08:40 | PAT Medication Instructions ---
Medication Instructions Date of Service January 20, 2019 Home Medications Medication Instructions Recorded metformin 1,000 mg tablet 1,000 mg PO BID #180 tab 09/24/18 insulin glargine 100 0.55 ml SUBCUT DAILY #15 ml 01/12/19 unit-lixisenatide 33 mcg/mL subcutaneous pen aspirin 81 mg tablet,delayed release 81 mg PO QAM indomethacin 75 mg capsule,extended release 75 mg PO UD PRN metformin 1,000 mg tablet 1,000 mg PO BID insulin glargine 100 unit-lixisenatide 33 mcg/mL subcutaneous pen 0.55 ml SUBCUT DAILY allopurinol 100 mg PO QAM amlodipine 10 mg PO QAM atorvastatin 10 mg PO QAM lisinopril 40 mg PO QAM omeprazole 20 mg PO DAILY PRN ASK your surgeon for instructions indomethacin 75 mg capsule,extended release 75 mg PO UD PRN ASK your prescriber and surgeon aspirin 81 mg tablet,delayed release 81 mg PO QAM DO NOT take the morning of surgery metformin 1,000 mg tablet 1,000 mg PO BID lisinopril 40 mg PO QAM Take morning of surgery With a small sip of water, OTHERWISE NOTHING TO EAT OR DRINK AFTER MIDNIGHT: allopurinol 100 mg PO QAM amlodipine 10 mg PO QAM atorvastatin 10 mg PO QAM omeprazole 20 mg PO DAILY PRN (if needed) Take evening before surgery metformin 1,000 mg tablet 1,000 mg PO BID omeprazole 20 mg PO DAILY PRN (if needed) Other Notes If you have any questions please call us at [phone] or [phone] or [phone] or [phone]
--- NOTE | 2019-01-24 08:25 | Anesthesiology Consultation ---
Date of Service January 24, 2019 Assessment & Plan (1) Encounter for pre-operative examination: - Check BSG AM DOS - ASA instructions per surgeon/prescriber Chart Review Chart Review: Acceptable Risk for Surgery and Patient seen in Pre Admission Testing Teaching & Discussion Pre-Anesthesia Teaching/Discussion Notes: Instructed NPO after midnight before surgery,except medications with 15 cc of water. Medication instructions provided according to the PAT guidelines. History Surgery Operation Date: 02/01/19 07:15 Proposed Procedures p Transurethral Resection Prostate - Daniele Reese MD Height/Weight Height: 6 ft Weight: 121 kg Allergies Allergy/AdvReac Type Severity Reaction Status Date / Time No Known Drug Allergies Allergy . Verified 01/24/19 10:39 Medications Home Medications Medication Instructions Recorded Confirmed Last Taken aspirin 81 mg tablet,delayed 81 mg PO QAM tab 07/23/18 01/24/19 Unknown release indomethacin 75 mg 75 mg PO UD PRN #30 cap 07/23/18 01/24/19 Unknown capsule,extended release metformin 1,000 mg tablet 1,000 mg PO BID #180 tab 09/24/18 01/24/19 Unknown insulin glargine 100 0.55 ml SUBCUT DAILY #15 ml 01/12/19 01/24/19 Unknown unit-lixisenatide 33 mcg/mL subcutaneous pen allopurinol 100 mg PO QAM 01/18/19 01/24/19 Unknown amlodipine 10 mg PO QAM 01/18/19 01/24/19 Unknown atorvastatin 10 mg PO QAM 01/18/19 01/24/19 Unknown lisinopril 40 mg PO QAM 01/18/19 01/24/19 Unknown omeprazole 20 mg PO DAILY PRN 01/18/19 01/24/19 Unknown Past Medical History Medical History BPH (benign prostatic hyperplasia) Degenerative disc disease Diabetes mellitus, type 2 IDDM Enlarged prostate GERD (gastroesophageal reflux disease) controlled Gout Hyperlipidemia Hypertension Obesity Osteoarthritis Peripheral neuropathy Exercise / Class Metabolic Activity III < 4 Walking/Shop/Light housework Past Family History Family History Father Diabetes Hypertension Mother Diabetes Past Surgical History Surgical History Fusion of spine CERVICAL History of carpal tunnel surgery RT/LEFT History of cholecystectomy Lap yue: 01/26/17: Grade view 1, MAC#3, ETT 7.5 at [facility] History of colonoscopy History of esophagogastroduodenoscopy (EGD) History of tonsillectomy S/P vasectomy [place] teeth removed Past Anesthesia History No Hx of Anesthesia Complications and No Family Hx of Anesthesia Complications History of PONV No Hx of PONV and No Hx of Motion Sickness Social History Smoking Status: Never smoker Do You Dip or Chew Tobacco: No Hx Alcohol Use: Yes Alcohol type: beer alcohol intake frequency: a few times a month Hx Substance Use: No substance use type: does not use Review of Systems Reflux controlled. Patient denies chest pain, shortness of breath, cough, wheezing, palpitations. Physical Exam Vital Signs VTALS BP 143/84 P 78 TEMP 98.5 SP02 97%RA RESP 18 PHYSICAL Mildly decreased cervical extension s/p cervical fusion. Full TMJ range of motion. TMD 3.5 finger breaths Mallampati Score 1 Dentition: intact Lungs: clear throughout to auscultation Cardiac: regular rate and rhythm, no murmurs noted Spine: normal Carotid arteries: negative bruit Extremities: no edema Testing Laboratory Results 01/24/19 08:53 01/24/19 08:53 Hemoglobin A1c 8.9 % (4.5-5.6) H 01/24/19 08:53 Urine Color Yellow 01/24/19 08:53 Urine Appearance Clear (Clear) 01/24/19 08:53 Urine pH 5.5 (4.5-7.5) 01/24/19 08:53 Ur Specific Addison 1.019 (1.000-1.030) 01/24/19 08:53 Urine Protein 1+ (Negative) H 01/24/19 08:53 Urine Glucose (UA) Negative (Negative) 01/24/19 08:53 Urine Ketones Negative (Negative) 01/24/19 08:53 Urine Nitrite Negative (Negative) 01/24/19 08:53 Ur Leukocyte Esterase Negative (Negative) 01/24/19 08:53 Urine WBC (Auto) 1-5 /hpf (0-5) 01/24/19 08:53 Urine RBC (Auto) 0-4 /hpf (0-4) 01/24/19 08:53 U Hyaline Cast (Auto) 0 /lpf (0-5) 01/24/19 08:53 U Epithel Cells (Auto) 0-5 /lpf (0-5) 01/24/19 08:53 Urine Bacteria (Auto) Negative (Negative) 01/24/19 08:53 *Surgeon office made aware of elevated HGBA1C* Electrocardiogram Date: 01/24/19 SR with first degree AVB at 83bpm. Chest X-Ray Date: 01/24/19 Findings: + NAD
--- NOTE | 2019-01-24 09:22 | XRay Report ---
XR chest Pre-admission PA/Lat CLINICAL HISTORY: PAT COMPARISON STUDY: No previous studies for comparison. FINDINGS: The bones soft tissues and hemidiaphragms are normal. The cardiomediastinal silhouette is n ormal. The lungs are clear. The pulmonary vasculature is normal. IMPRESSION: Negative chest. The above report was generated using voice recognition software. It may contain grammatical, syntax or spelling errors. Electronically signed by: Samm Jordan M.D. 01/24/2019 9:20 AM
[2019-01-24 10:42] LABS: Basophils # (auto) 0.03 K/uL (0-0.2); Basophils % (auto) 0.3 %; Eosinophils # (auto) 0.24 K/uL (0-0.5); Eosinophils % (auto) 2.6 %; Immature Granulocytes # (auto) 0.02 K/uL (0.00-0.02); Immature Granulocytes % (auto) 0.2 %; Lymphocytes # (auto) 2.29 K/uL (1.2-3.4); Lymphocytes % (auto) 25.1 %; Mean Corpuscular Hemoglobin 30.1 pg (25-34); Mean Corpuscular Hgb Conc 34.8 g/dL (32-36); Mean Corpuscular Volume 86.6 fL (80-100); Mean Platelet Volume 11.8 fL (7.4-10.4); Monocytes # (auto) 0.74 K/uL (0.11-0.59); Monocytes % (auto) 8.1 %; Neutrophils % (auto) 63.7 %; Platelet Count 250 K/uL (130-400); RDW Coefficient of Variation 13.3 % (11.5-14.5); Red Blood Count 5.31 M/uL (4.7-6.1); White Blood Count 9.12 K/uL (4.8-10.8)
[2019-01-24 10:46] LABS: Appearance Urine Clear (Clear); Bacteria Urine Automated Negative (Negative); Bilirubin Urine Negative (Negative); Blood Urine Negative (Negative); Cast Urine Automated 0 /lpf (0-5); Color Urine Yellow; Epithelial Cell Urine Auto 0-5 /lpf (0-5); Glucose Urine UA Negative (Negative); Ketones Urine Negative (Negative); Leukocyte Esterase Urine Negative (Negative); Nitrite Urine Negative (Negative); Protein Urine 1+ (Negative); RBC Urine Automated 0-4 /hpf (0-4); Specific Gravity Urine 1.019 (1.000-1.030); Urobilinogen Urine Negative (Negative); pH Urine 5.5 (4.5-7.5)
[2019-01-24 10:49] LABS: BUN Creatinine Ratio 14.2 (10-20); Calcium 9.9 mg/dl (8.5-10.1); Creatinine Clr Calc Pharmacy 107.7 ml/min; Est GFR (African American) 98.6; Est GFR (Non-African American) 85.1; Potassium 4.2 mmol/L (3.5-5.1)
[2019-01-24 11:26] LABS: Estimated Average Glucose 209 mg/dl; Hemoglobin A1C 8.9 % (4.5-5.6)
[2019-02-01] MEDS ORDERED: LR 15ML/HR IV SCH (06:00)
[2019-02-01] MEDS ORDERED: CIPROFLOXACIN 400 MG/200 ML BAG IV SCH (06:00)
[2019-02-01] MEDS ORDERED: ATROPINE SULFATE 0.1 MG/ML 10ML SYR IV PRN (06:39)
[2019-02-01] MEDS ORDERED: HYDROmorphone INJ 2 MG/ML SYR/VIAL IV PRN (06:39)
[2019-02-01] MEDS ORDERED: ePHEDrine sulfate 50 MG/ML AMP IV PRN (06:39)
[2019-02-01] MEDS ORDERED: fentaNYL citrate 100 MCG/2 ML VIAL IV PRN (06:39)
--- NOTE | 2019-02-01 06:57 | History & Physical Bridge Note ---
Date of Service February 01, 2019 History & Physical Bridge Note I have examined the patient, reviewed the History & Physical and in the interval since the performance of the History & Physical I have noted the following changes of clinical significance: no changes noted
[2019-02-01] MEDS ORDERED: fentaNYL citrate 100 MCG/2 ML VIAL ONE ×2 (07:00→07:52)
[2019-02-01] MEDS ORDERED: MIDAZOLAM HCL 1 MG/ML 2ML VIAL ONE (07:01)
[2019-02-01] MEDS ORDERED: PROPOFOL IV EMULSION 10 MG/ML 20 ML VIAL IV ONE (07:28)
[2019-02-01] MEDS ORDERED: ONDANSETRON INJ 2 MG/ML 2 ML VIAL ONE (07:28)
[2019-02-01] MEDS ORDERED: LIDOCAINE HCL 2% 2 ML VIAL/AMP(20MG/ML) INFIL ONE (07:28)
[2019-02-01] MEDS ORDERED: PHENYLEPHRINE 100MCG/ML 5ML SYR ONE (07:38)
--- NOTE | 2019-02-01 09:16 | Operative Report ---
PG Post Operative Report Pre & Post Diagnosis Operation Date: 02/01/19 07:15 Pre-Op Diagnosis: Benign Prostatic Hyperplasia Post-Op Diagnosis: Benign Prostatic Hyperplasia I identified the patient and participated in the time-out.: Yes Procedure Operation Date: 02/01/19 07:15 Actual Procedures p Transurethral Resection Prostate(Not Applicable) - Daniele Reese MD Surgeon Jt Reese MD Life Scientist none Estimated Blood Loss 5 Findings Consistent with Post-Op Diagnosis Specimens Prostate chips Description of Procedure The patient was identified in the preopertive holding area, appropriate informed consents were reviewed and completed and the patient was transferred to the operative suite. Upon arrival, appropriate antibiotics and anesthesia were administered and the patient was placed in dorsal lithotomy position and prepped and draped in sterile fashion. To begin the case I passed a 27 Cymraes resectoscope with 30 degree lens and visual obturator. Inspection revealed no evidence of stricture disease. He has a large prostate with lateral lobe hypertrophy and a bilobed intravesical median lobepedunculated. This is a very large volume of tissue in the intravesical space. The remainder of his bladder is healthy in appearance. I was able to visualize his ureteral orifices. Following inspection I exchanged the visual grating machine operator for resecting element, initially choosing a button electrode. I began to incise the bladder neck at 5 and 7:00 which allowed me to sweep underneath the intravesical lobe and severed this lobe from its other connections to the prostate flush with the bladder neck. There were 2 large pieces of prostate tissue which were then freed and floating in within the bladder. The bladder neck was then inspected and hemostasis was excellent. I was able to resect the left and right lateral lobes of the prostate utilizing a button electrode. There was an excellent appearance of the prostatic fossa at that time with patent urethra. I then attempted to extract the specimens that were floating in the bladder. I was unable to do this without morcellating them. I utilized a loop electrode to cut these into pieces to evacuate them. I confirmed all pieces have been evacuated and hemostasis remained excellent at the conclusion of the case. A 22 Cymraes cathet er was placed without difficulty and the case concluded. There were no complications. I attest to the content of the Intraoperative Record and any orders documented therein. Any exceptions are noted below.
--- NOTE | 2019-02-01 09:37 | Anesthesiology Progress Note ---
Date of Service February 01, 2019 Anesthesia Post Procedure Vital Signs Vital Signs: Temp Pulse Pulse Pulse Resp BP BP 02/01/19 09:33 36.4 C L 02/01/19 09:26 86 20 02/01/19 09:25 89 25 H 143/80 H 02/01/19 09:21 89 20 02/01/19 09:20 88 23 138/81 02/01/19 09:16 89 21 02/01/19 09:15 88 21 142/80 H 02/01/19 09:11 96 H 15 02/01/19 09:10 95 H 22 141/78 H 02/01/19 09:06 89 19 02/01/19 09:05 90 19 125/76 02/01/19 09:01 87 19 02/01/19 09:00 88 12 119/79 02/01/19 08:56 91 H 13 02/01/19 08:55 93 H 12 109/77 02/01/19 08:52 91 H 20 02/01/19 08:51 36.4 C L 92 H 92 H 18 119/80 119/80 02/01/19 06:01 36.9 C 88 18 167/88 H Pulse Ox 02/01/19 09:33 93 02/01/19 09:26 92 02/01/19 09:25 91 02/01/19 09:21 95 02/01/19 09:20 92 02/01/19 09:16 92 02/01/19 09:15 92 02/01/19 09:11 95 02/01/19 09:10 93 02/01/19 09:06 93 02/01/19 09:05 94 02/01/19 09:01 96 02/01/19 09:00 99 02/01/19 08:56 98 02/01/19 08:55 94 02/01/19 08:52 94 02/01/19 08:51 91 02/01/19 06:01 95 Pain Intensity Penis: Pain Intensity: 0 Transfer of Care Handoff Completed per policy Notes Mental Status: alert / awake / arousable and participated in evaluation Patient Amnestic to Procedure: Yes Nausea / Vomiting: adequately controlled Pain: adequately controlled Airway Patency, RR, SpO2: stable & adequate BP & HR: stable & adequate Hydration State: stable & adequate Anesthetic Complications: no major complications apparent and Pt Satisfied with anesthetic care
[2019-02-01] MEDS ORDERED: ACETAMINOPHEN 325 MG TAB PO PRN (09:38)
[2019-02-01] MEDS ORDERED: ONDANSETRON INJ 2 MG/ML 2 ML VIAL IV PRN (09:38)
[2019-02-01] MEDS ORDERED: ACETAMINOPHEN W/CODEINE #3 1 TAB PO PRN (09:38)
[2019-02-01] MEDS: LACTATED RINGER'S 1,000 ML IV SCH ×2 (10:26→18:35)
[2019-02-01] MEDS ORDERED: PHARMACY GLYCEMIC MGMT CONSULT PRN (10:27)
[2019-02-01] MEDS ORDERED: CARBOHYDRATES FOR HYPOGLYCEMIA PO PRN (10:30)
[2019-02-01] MEDS ORDERED: GLUCOSE 40% GEL 15 GM TUBE PO PRN (10:30)
[2019-02-01] MEDS ORDERED: GLUCAGON FOR INJ 1 MG VIAL IM PRN (10:30)
[2019-02-01] MEDS ORDERED: DEXTROSE 50% 50 ML SYRINGE IV PRN (10:30)
[2019-02-01] MEDS ORDERED: GLUCOSE 10 TABS/TUBE PO PRN (10:30)
[2019-02-01] MEDS: INSULIN ASPART 100 UNITS/ML 3 ML PEN SC SCH ×5 (11:06→23:39)
--- NOTE | 2019-02-01 11:15 | Pharmacy Report ---
Glycemic Control Consultation - Date of Service February 01, 2019 - Scope Scope: Glycemic Pharmacist consulted by Dr Reese on 02/01 for glycemic control and to write orders per [facility] inpatient glycemic control protocol - Objective Weight: 119.4 kg Accuchecks BSG (last 24hrs): 02/01/19 02/01/19 02/01/19 05:46 09:00 10:39 POC Glucose 204 H 225 H 271 H HbA1c: Hemoglobin A1c 8.9 % (4.5-5.6) H 01/24/19 08:53 - Recent Pertinent Medications Outpatient Anti-diabetic Regimen: * glargine/lixisenatide (100/33 mcg/ml pen) - 55 units once daily, metformin 1000 mg bid * A1c = 8.9 % 01/24 Risk Factors for Insulin Resistance: * Recent Surgery: POD 0 * Diet: T2DM - Assessment & Plan Assessment & Plan: ASSESSMENT: * 58 year old male s/p prostate resection. PMHx significant for BPH, gout, GERD, hld, ht, osteoarthritis * Type 2 diabetic - A1C on admission 8.9% * Spoke with patient and took only 27 units of insulin this morning (Soliqua pen) - confirmed he dials pen back to 55 (equivalent to 55 units of glargine) * Postop BSGs elevated in 200s likely related to stress from surgery - will order additional Lantus for now (to make up missed dose) and add on sliding scale coverage PLAN FOR INPATIENT GLYCEMIC CONTROL: * Pt is maintained on oral antidiabetic agents as an outpatient * Oral agents are not recommended for inpatient use d/t drug interactions, changing PO intake, and difficulty titrating for acute hyper/hypoglycemia. ADA recommends re-initiating outpatient oral agents 1-2 days prior to discharge if/when appropriate if they were held on admission. * Will hold oral agents for admission and utilize SQ basal bolus insulin regimen which is the recommended regimen for inpatient glycemic control. * Will initiate weight based insulin dosing for insulin khadar patient and titrate based on BSG trends. * Basal insulin * Lantus 33 units x 1 (patient took 27 this morning = 60 total / 10% increase from home requirements) * Bolus insulin - add overnight checks for additional coverage * NovoLog per scale ACHS or Q6hrs while NPO * Goal Range: Low 110 mg/dL - High 140 mg/dL * Correction Factor: 20 mg/dL/unit * Nutritional / Prandial insulin per carb ratio of 1 unit per 6 grams CHO consumed * Please note that the plan above was derived based on current level of insulin resistance and hospital stress. These recommendations are appropriate for inpatient admission only. Plan of care upon discharge will need to be reassessed to avoid potential outpatient hypo/hyperglycemia. Thank you.
[2019-02-01] MEDS ORDERED: INSULIN GLARGINE SOLOSTAR 100 UNITS/ML 3 ML PEN SC ONE (11:30)
[2019-02-01] MEDS: CEFAZOLIN 2000MG 2,000 MG/15 ML SYR IV SCH ×2 (13:19→21:41)
[2019-02-01] MEDS ORDERED: INSULIN HUMAN REGULAR PER UNIT 5 UNITS in SYRINGE 0 ML IV ONE (18:00)
[2019-02-01] MEDS ORDERED: METFORMIN HCL 500 MG TAB PO SCH (21:00)
[2019-02-02] MEDS: LACTATED RINGER'S 1,000 ML IV SCH (04:07)
[2019-02-02] MEDS: INSULIN ASPART 100 UNITS/ML 3 ML PEN SC SCH ×2 (04:09→08:39)
--- NOTE | 2019-02-02 08:07 | Urology Progress Note ---
Date of Service February 02, 2019 Assessment & Plan (1) BPH loc w/o ur obs/LUTS: POD#1 s/p TURP - ruelas out today -d/c home Subjective no issues overnight mild irritation from the catheter urine cleared appropriately Physical Exam Physical Exam: NAD AAOx3 no resp distress RRR abd soft urine clear - slight blood tinge Results & Data Vital Signs (Past 12 Hours) Vital Signs Temp Pulse Pulse Resp BP Pulse Ox 02/02/19 07:10 36.6 C 77 16 159/83 H 94 02/02/19 04:00 36.7 C 77 18 135/75 95 02/01/19 23:10 36.4 C L 75 18 114/64 96 PG Care Time/CCT Total # of Minutes Spent Total Time Spent with Patient: Total time spent is greater than 50% in coordination of care (as documented) at patient's floor/unit and/or counseling patient:
--- NOTE | 2019-02-02 08:08 | Discharge Summary ---
Date of Service February 02, 2019 Admission HPI Per Admitting Provider chronic voiding dysfunction Principal Diagnosis BPH Discharge Data Allergies Allergy/AdvReac Type Severity Reaction Status Date / Time No Known Drug Allergies Allergy . Verified 02/01/19 05:56 Procedures Performed Operation Date: 02/01/19 07:15 Actual Procedures p Transurethral Resection Prostate(Not Applicable) - Daniele Reese MD Hospital Course (1) BPH loc w/o ur obs/LUTS: uneventful TURP - no issues overnight. passed his voiding trial on POD#1 and was d/c'ed home in stable condition Total Time Total Time Spent Total Time Spent (In Minutes): 20 Total Time Includes: Examination of the Patient Discharge Plan Discharge Items Patient Disposition: Home - Self-Care Reason For Visit: Benign Prostatic Hyperplasia Discharge Diagnosis: BPH Activity: Resume your previous activity Lifting: Gradually increase as tolerated Bathing: No limitations Sexual Activity: When tolerated Exercise/Sports: Gradually increase as tolerated Driving/Machine Use: No limitations Non-emergency contact: Urologist Call non-emergency contact if: you have any medication questions, your pain is concerning for you and your temperature is above 101.5 Follow-up/Referrals: Vanessa Enriquez DO [Primary Care Provider] - Diet: Carb Consistent or DM2 Addtl Attending Provider Instructions: Please take all medications as prescribed and keep follow-ups as scheduled. Please call our office at [phone] with any questions, concerns or need to reschedule appointments for any reason. We are happy to assist you. While catheter is in place, please wash with warm soapy water and a fresh washcloth twice a day with mild bar soap (Dove, Dial, etc.). Your nursing visit appointment to have your catheter removed should already be made, if you have any question regarding this, please call our office. Complete antibiotics as prescribed, if indicated. It is okay to take AZO (available over the counter) as needed for a few days to relieve burning with urination. This may cause your urine or feces to turn an orangish-color. This is expected. The only exception is if you have been prescribed Pyridium (phenazopyridine), this is the same medication and should not take AZO be taken in addition to prescription version. Please do not drive, drink alcohol or operate machinery while taking prescription pain medication. We recommend continuing a stool softener (i.e. Colace) to prevent constipation/straining for at least two weeks after your procedure. Some blood is to be expected in your urine as you heal, you may even see recurrences of blood in your urine for up to 4-6 months after your procedure. Drink plenty of fluids, avoid sexual or strenuous exercise and do not lift >25 pounds until your follow-up. Call [facility] at [phone] promptly if you experience: Fever of 101F or greater Pain thats not controlled with medicine Trouble urinating or inability to urinate Dark, bloody urine for more than 12 hours Pending Studies at Discharge: Yes Studies:: Pathology Stand-Alone Forms: [facility] [employer], Smoking Cessation Medications and DC Order Prescriptions: Continued metformin 1,000 mg tablet 1,000 mg PO BID Qty: 180 RF: 3 insulin glargine-lixisenatide 100 unit-33 mcg/mL insulin pen 0.55 ml subcut DAILY Qty: 15 RF: 5 lisinopril 40 mg tablet 40 mg PO QAM Qty: 90 RF: 3 indomethacin 75 mg capsule, extended release 75 mg PO UD PRN (Reason: GOUT FLARE UP) Qty: 30 RF: 0 aspirin 81 mg tablet,delayed release (DR/EC) 81 mg PO QAM RF: 0 atorvastatin 10 mg tablet 10 mg PO QAM RF: 0 allopurinol 100 mg tablet 100 mg PO QAM RF: 0 amlodipine 10 mg tablet 10 mg PO QAM RF: 0 omeprazole 20 mg capsule,delayed release(DR/EC) 20 mg PO DAILY PRN (Reason: Indigestion) RF: 0 Discharge Orders: Discharge Order (Routine); Ordered 02/02/19 Ordered By: Daniele Olivia/Other Patient Handouts: Diabetes Excavator Backhoe Operator Complications, Diabetes Resources, Diabetes Healthy Meals, Diabetes Carbs, Diabetes Exercise Benefits, Diabetes Activity Tips, Diabetes Living Life, A1C Admission Data Admit Date/Time: 02/01/19 09:14 Attending Provider: Daniele Reese Admit Provider: Daniele Reese Primary Care Provider: Vanessa Enriquez
[2019-02-02] MEDS ORDERED: allopurinoL 100 MG TAB PO SCH (09:00)
[2019-02-02] MEDS ORDERED: AMLODIPINE BESYLATE 5 MG TAB PO SCH (09:00)
[2019-02-02] MEDS ORDERED: INSULIN GLARGINE SOLOSTAR 100 UNITS/ML 3 ML PEN SC SCH (09:00)
[2019-02-02] MEDS ORDERED: PANTOprazole 40 MG TAB PO PRN (09:00)
[2019-02-02] MEDS ORDERED: lisinopriL 40 MG TAB PO SCH (09:00)
[2019-02-02] MEDS ORDERED: ATORVASTATIN 10 MG TAB PO SCH (09:00)
== END 2019-02-02 10:58 | disposition home or self-care (01) ==
LOC: 3N 05:29 → ASU 05:29